=== PATIENT | female | born 1960 | race African-American/Black ===

== ENCOUNTER 2018-02-21 19:24 | Emergency (ER) | payer MEDICAID, OTHER ==
[~2018-02-21] VITALS: Ht 165.1 cm; Wt 96.0 kg
[2018-02-22 00:21] VITALS: BP 115/78
== END 2018-02-21 21:30 | disposition left against medical advice (07) ==
LOC: ER 19:24
DX: Z53.21 Procedure and treatment not carried out due to patient leaving prior to being seen by health care provider (principal)

== ENCOUNTER 2024-10-04 01:50 | Inpatient (IN) | payer BC, MEDICAID ==
[~2024-10-04] VITALS: Ht 165.1 cm; Wt 91.2 kg
[~2024-10-04 01:50] MED LIST: ATOR10TA69 MT; LEVO-65 MT; METR-167 MT
[2024-10-04] MEDS: FAMOTIDINE 20MG/2ML VIAL IV STA (03:03)
[2024-10-04] MEDS: SODIUM CHLORIDE 0.9% 1,000 ML IV ONE (03:04)
[2024-10-04] MEDS: ONDANSETRON HCL 4MG/2ML INJ IV STA (03:04)
[2024-10-04 03:14] LABS: BASOPHILS % 0.4 % (0.0-2.0); EOSINOPHILS % 1.4 % (0.0-5.0); HEMOGLOBIN. 13.9 g/dL (12.0-16.0); LYMPHOCYTES % 38.6 % (20.0-50.0); MEAN CORPUSCULAR HEMOGLOBIN 31.1 pg (28.0-32.0); MEAN CORPUSCULAR HGB CONC 33.1 g/dL (31.0-37.0); MEAN PLATELET VOLUME 10.2 fl (7.4-10.4); MONOCYTES % 6.5 % (2.0-8.0); NEUTROPHILS % 53.1 % (40.0-76.0); PLATELET 247 x1000/uL (130-400); RED BLOOD CELL COUNT 4.47 mill/uL (4.2-5.4); WHITE BLOOD COUNT 13.4 x1000/uL (4.5-11.0)
[2024-10-04 03:27] LABS: PROTHROMBIN TIME 11.2 sec (9.6-11.0)
[2024-10-04 03:39] LABS: CHLORIDE 106 mEq/L (98-107); POTASSIUM 3.5 mEq/L (3.5-5.1); SODIUM 141 mEq/L (136-145)
[2024-10-04 03:40] LABS: CARBON DIOXIDE 27 mEq/L (21-32); CLARITY URINE CLEAR (CLEAR); COLOR URINE YELLOW (YELLOW); GLUCOSE URINE NEGATIVE (NEGATIVE); KETONES URINE NEGATIVE (NEGATIVE); LEUKOCYTE ESTERASE URINE NEGATIVE (NEGATIVE); NITRITE URINE NEGATIVE (NEGATIVE); OCCULT BLOOD URINE NEGATIVE (NEGATIVE); PROTEIN URINE NEGATIVE (NEGATIVE); SPECIFIC GRAVITY URINE 1.008 (1.005-1.030); UROBILINOGEN URINE 0.2 E.U./dL (0.2-1.0)
[2024-10-04 03:41] LABS: CALCIUM 9.9 mg/dL (8.7-10.4)
[2024-10-04 03:45] LABS: CREATININE 0.9 mg/dL (0.6-1.0); GLUCOSE 83 mg/dL (70-105)
[2024-10-04 03:46] LABS: UREA NITROGEN BLOOD 18 mg/dL (9-23)
[2024-10-04 03:47] LABS: ALANINE AMINOTRANSFERASE 13 IU/L (10-49); ALBUMIN 4.5 g/dL (3.2-4.8); ASPARTATE AMINOTRANSFERASE 16 IU/L (<34); LACTIC ACID 2.5 mmol/L (0.4-2.0)
[2024-10-04 03:48] LABS: BILIRUBIN DIRECT 0.1 mg/dL (<=3.0); BILIRUBIN TOTAL 0.6 mg/dL (0.1-1.0); PROTEIN TOTAL 7.9 g/dL (6.0-8.3)
[2024-10-04] MEDS ORDERED: IOHEXOL-300 100 ML BOTTLE ONE (07:23)
[2024-10-04] MEDS: MORPHINE SULFATE 4 MG/ML INJ (FOR IV/IM USE) IV STA (07:45)
[2024-10-04 09:39] VITALS: BP 131/64; PULSE 69; RESP 20; TEMP 36.5848
[2024-10-04] MEDS ORDERED: NALOXONE HCL 0.4MG/ML VIAL IV PRN (11:30)
[2024-10-04] MEDS ORDERED: ONDANSETRON HCL 4MG/2ML INJ IV PRN (11:30)
[2024-10-04] MEDS: PIPERACILLIN/TAZO 3.375G/50ML 50 ML IV SCH (11:47)
[2024-10-04] MEDS: HYDROCODONE/ACETAMINOPHEN 5/325MG TABLET PO PRN (11:54)
[2024-10-04 12:00] VITALS: BP 135/66; PULSE 74; RESP 18; TEMP 36.50292; O2SAT 100
[2024-10-04 16:00] VITALS: BP 109/66; PULSE 67; RESP 18; TEMP 36.33624; O2SAT 100
[2024-10-04 20:00] VITALS: BP 101/55; PULSE 73; RESP 17; TEMP 37.33632; O2SAT 99
[2024-10-05] VITALS: BP 148/85; PULSE 72; RESP 17; O2SAT 100
[2024-10-05 04:00] VITALS: BP 119/56; PULSE 68; RESP 16; TEMP 37.44744; O2SAT 100
[2024-10-05 08:00] VITALS: BP 138/77; PULSE 71; RESP 18; TEMP 36.33624; O2SAT 96
[2024-10-05 12:00] VITALS: BP 100/73; PULSE 62; RESP 17; TEMP 36.3918; O2SAT 99
[2024-10-05 16:00] VITALS: BP 114/72; PULSE 66; RESP 18; TEMP 36.72516; O2SAT 100
[2024-10-05] MEDS ORDERED: LEVO-65 MT (16:06)
[2024-10-05] MEDS ORDERED: METR-167 MT (16:06)
[2024-10-05 20:00] VITALS: BP 112/67; PULSE 67; RESP 18; TEMP 35.89176; O2SAT 97
[2024-10-06] VITALS: BP 135/67; PULSE 67; RESP 18; TEMP 36.28068; O2SAT 100
[2024-10-06 04:00] VITALS: BP 129/63; PULSE 57; RESP 18; TEMP 36.61404; O2SAT 100
[2024-10-06 07:56] VITALS: BP 149/81; PULSE 58; TEMP 98.6; O2SAT 99
[2024-10-06 08:00] VITALS: BP 149/81; PULSE 58; RESP 19; TEMP 37.00296; O2SAT 99
[2024-10-07 08:00] VITALS: BP 121/67; PULSE 78; RESP 17; TEMP 36.72516; O2SAT 98
[2024-10-07 12:00] VITALS: BP 121/67; PULSE 90; RESP 18; TEMP 36.05844; O2SAT 97
== END 2024-10-06 12:35 | disposition home or self-care (01) | DRG 392 ==
LOC: ER 02:08 → 6EST 04:49 → 8EST 17:06
PROVIDERS: ADMIT Internal Medicine; ATTEND Internal Medicine
DX: K57.32 Diverticulitis of large intestine without perforation or abscess without bleeding (principal); E66.9 Obesity, unspecified; Z68.33 Body mass index [BMI] 33.0-33.9, adult; Z88.6 Allergy status to analgesic agent; Z90.710 Acquired absence of both cervix and uterus; Z79.899 Other long term (current) drug therapy
CPT/HCPCS: 36415; 74177; 80048; 80076; 81003; 83605; 85025; 99285; J2270; J2405; J2543; J3490; J7030; Q9967